=== PATIENT | male | born 1950 | race Caucasian/White ===

== ENCOUNTER → 2018-06-10 | Outpatient (CLI) | payer MEDICARE, OTHER ==
[~2018-06-10] MED LIST: ASPIRIN E.C. 8181 MG PO; CIPRO 500MG TA500 MG PO; COREG12.5 MG PO; CRESTOR10 MG PO; FORTAMET500 MG PO; GLUCOPHAGE500 MG/TAB PO; HCTZ; HCTZ12.5TAB PO; HYGROTON25 MG PO; LIPITOR 10MG10 MG PO; LISINOPRIL/HCTZ1 TA1 PO; MULTAQ400 MG PO; NORVASC10 MG PO; PREDNISONE20 MG PO
== END ==
LOC: COL.RAD 07:18
DX: Z13.6 Encounter for screening for cardiovascular disorders (principal); Z87.891 Personal history of nicotine dependence